=== PATIENT | male | born 1960 | race Caucasian/White ===

== ENCOUNTER 2016-11-08 13:58 | Emergency (ER) | payer OTHER ==
[~2016-11-08] VITALS: Ht 172.7 cm; Wt 93.2 kg
[~2016-11-08 13:58] MED LIST: AMLO2.5T PO; GABA600T PO; IBUP800T23 PO; NORT1CAP53 PO; TEGR200T PO
[2016-11-08 14:01] VITALS: BP 152/74; PULSE 70; RESP 16; TEMP 98.1; O2SAT 96
--- NOTE | 2016-11-08 14:39 | PD ---
HPI Chief Complaint: Laceration/Skin Injury Time Seen by Provider: 14:39 Travel History International Travel<30 days: No Contact w/Intl Traveler<30days: No Traveled to known affect area: No History of Present Illness HPI 56-year-old male presents to the emergency department with complaint of a laceration to the dorsal aspect of his left hand just below the thumb that occurred today with a clean razor blade while at work. He does not know if he is up-to-date on his tetanus vaccination. Denies paresthesias, loss of sensation, decreased range motion, decreased strength to the left thumb. Has not taken any medications to alleviate his symptoms. Has applied pressure and a bandage to control bleeding. Denies fever, chills, nausea or vomiting. No other modifying factors or associated signs and symptoms. 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 Approximately 3-1/2 cm laceration to the Dorsal aspect of the left hand just below the thumb; areas without erythema, edema; and with minimal amount of bright red drainage. Left thumb is with full range of motion and full extension and flexion; with good opposition; sensory intact and less than 3 second cap refill; thumb is pink and warm Left upper extremity supple and nontender 2+ radial pulse and sensory intact without erythema or edema. HEAD: Atraumatic. Normocephalic. EYES: Pupils equal and round. No scleral icterus. No injection or drainage. ENT: Mucosa pink and moist. Airway patent. NECK: Trachea midline. CARDIOVASCULAR: Regular rate. RESPIRATORY: No accessory muscle use. GASTROINTESTINAL: Flat. MUSCULOSKELETAL: No obvious deformities. No clubbing. No cyanosis. No edema. NEUROLOGICAL: Awake and alert. Oriented 3. No obvious cranial nerve deficits. Motor grossly within normal limits. Normal speech. PSYCHIATRIC: Appropriate mood and affect; insight and judgment normal. Data Data Last Documented VS Vital Signs Date Time Temp Pulse Resp B/P Pulse Ox O2 Delivery O2 Flow Rate FiO2 11/08/16 14:01 98.1 70 16 152/74 96 Room Air Orders Tetanus/Diphtheria Tox Adult (Tetanus/Di (11/08/16 14:45) Lidocaine 1% Inj (50 Ml) (Xylocaine 1% I (11/08/16 14:45) MDM Medical Decision Making Medical Screen Exam Complete: Yes Emergency Medical Condition: Yes Medical Record Reviewed: Yes Differential Diagnosis Laceration, contusion, abrasion Narrative Course 56-year-old male with laceration to the Dorsal aspect of the left hand just below the thumb. See my procedure note for laceration repair. Tetanus updated in the ER. Ibuprofen prescribed for home. Instructed patient to follow up with hand as needed. Patient is medically cleared and stable for discharge. Discussed reasons to return to the emergency department. Instructed patient to follow up with primary care provider. Patient agrees with treatment plan. The patients vital signs are stable and the patient is stable for outpatient follow- up and treatment. Patient discharged home, stable and in no acute distress. Procedures Procedure Narrative LACERATION LOCATION: Dorsal aspect of the left hand just below the thumb LENGTH: 3.5cm NUMBER OF STITCHES/BRYNN: 6 stitches REPAIR: The area of the laceration was prepped with Betadine and sterilely draped. The laceration was infiltrated with 1% lidocaine. The wound was copiously irrigated and explored without evidence of foreign body, tendon injury or neurovascular injury. The wound was closed using 4-0 Prolene. This was a single layer repair. A sterile dressing was applied. The patient was advised to keep the dressing clean and dry. Patient tolerated the procedure well. Diagnosis Primary Impression: Laceration of left hand Qualified Code: S61.412A - Laceration of left hand, initial encounter Referrals: Primary Care Physician Patient Instructions: General Instructions, Laceration (ED) Departure Forms: Tests/Procedures, Work Release Enter return to work date: Nov 10, 2016 Additional Instructions: Keep area clean and dry Limit left thumb activity to decrease risk of sutures coming undone Ibuprofen or Tylenol as directed and as needed for pain and inflammation Ice pack to area as needed to decrease pain Return to the emergency department or follow-up with primary care provider in 7- 10 days for suture removal Follow up with primary care provider Return to the emergency department immediately with worsening of symptoms, particularly if reddened streaks up or down the affected extremity from the suture site, fever, numbness/tingling in the affected extremity, loss of sensation in the affected extremity, severe swelling of the affected Med/Other Pt SpecificInfo: Prescription(s) given Scripts Ibuprofen 800 Mg [id number] Mg PO Q6HR PRN (PAIN) #30 TAB Ref 0 Prov:Karlie Nixon 11/08/16 Cephalexin (Keflex)500 Mg [id number] Mg PO Q8H 7 Days Ref 0 Prov:Karlie Nixon 11/08/16 Disposition: 01 DISCHARGE HOME Condition: Stable Karlie Nixon Nov 08, 2016 14:39
[2016-11-08] MEDS ORDERED: LIDOCAINE HCL 1% 50 ML VIAL INFIL ONE (14:45)
[2016-11-08] MEDS ORDERED: TETANUS/DIPHTHERIA TOXOID ADULT 0.5 ML VIAL IM ONE (14:45)
[2016-11-08] MEDS ORDERED: CEPH-460 PO (14:47)
[2016-11-08] MEDS ORDERED: IBUP800T23 PO (14:47)
[2016-11-16] MEDS ORDERED: GABA600T PO (09:12)
[2016-11-16] MEDS ORDERED: AMLO2.5T PO (09:35)
[2016-11-16] MEDS ORDERED: NORT25CA PO (09:35)
[2017-01-04] MEDS ORDERED: GABA600T PO (12:01)
[2017-01-06] MEDS ORDERED: TEGR200T PO (08:28)
[2017-02-10] MEDS ORDERED: GABA600T PO (15:20)
[2017-02-10] MEDS ORDERED: NORT25CA PO (15:20)
[2017-02-10] MEDS ORDERED: TEGR200T PO (15:20)
[2017-02-10] MEDS ORDERED: AMLO2.5T PO (15:20)
== END 2016-11-08 15:59 | disposition home or self-care (01) ==
LOC: NEPB 13:58
DX: S61.412A Laceration without foreign body of left hand, initial encounter (principal); F17.200 Nicotine dependence, unspecified, uncomplicated; Z23 Encounter for immunization; Z86.69 Personal history of other diseases of the nervous system and sense organs; W45.8XXA Other foreign body or object entering through skin, initial encounter; Y99.0 Civilian activity done for income or pay
CPT/HCPCS: 12002; 90471; 90714

== ENCOUNTER → 2016-12-01 | Outpatient (CLI) | payer OTHER ==
[~2016-12-01] MED LIST changes: +CEPH-460 PO; -NORT1CAP53 PO; +NORT25CA PO
[2016-12-01 10:44] LABS: BASOPHIL # 0.1 TH/MM3 (0-0.2); BASOPHIL % 0.8 % (0.0-2.0); EOSINOPHIL # 0.1 TH/MM3 (0-0.4); EOSINOPHIL % 1.7 % (0.0-4.0); HEMATOCRIT 42.9 % (39.0-51.0); HEMO FLAGS DIFF FINAL; LYMPH % 32.3 % (9.0-44.0); LYMPHOCYTE # 2.5 TH/MM3 (1.0-4.8); MEAN CELL VOLUME 91.9 FL (80.0-100.0); MEAN CORPUSCULAR HEMOGLOBIN 31.3 PG (27.0-34.0); MEAN CORPUSCULAR HGB CONC 34.1 % (32.0-36.0); MONO % 12.9 % (0.0-8.0); NEUT % 52.3 % (16.0-70.0); PLATELET COUNT 253 TH/MM3 (150-450); RED BLOOD COUNT 4.67 MIL/MM3 (4.50-5.90); RED CELL DISTRIBUTION WIDTH 13.9 % (11.6-17.2); WHITE BLOOD COUNT 7.7 TH/MM3 (4.0-11.0)
[2016-12-01 11:25] LABS: ALKALINE PHOSPHATASE 179 U/L (45-117); ALT (GPT) 479 U/L (12-78); ANION GAP 5 MEQ/L (5-15); AST (GOT) 76 U/L (15-37); BICARBONATE 27.3 MEQ/L (21.0-32.0); BLOOD UREA NITROGEN 23 MG/DL (7-18); CHLORIDE 109 MEQ/L (98-107); GLOMERULAR FILTRATION RATE 65 ML/MIN (>89); GLUCOSE,FASTING 104 MG/DL (74-99); HDL CHOLESTEROL 22.9 MG/DL (40.0-60.0); LDL CHOLESTEROL 102 MG/DL (0-99); POTASSIUM 4.7 MEQ/L (3.5-5.1); SODIUM (NA) 141 MEQ/L (136-145); TOTAL BILIRUBIN ADULT 0.8 MG/DL (0.2-1.0)
== END ==
LOC: CLAB 10:26
PROVIDERS: ATTEND Family Medicine
DX: I10 Essential (primary) hypertension (principal); G50.0 Trigeminal neuralgia; M65.312 Trigger thumb, left thumb; Z65.8 Other specified problems related to psychosocial circumstances; Z72.0 Tobacco use
CPT/HCPCS: 36415; 80053; 80061; 84443; 85025